=== PATIENT | female | born 1995 | race Caucasian/White ===

== ENCOUNTER 2017-11-16 11:45 | Emergency (ER) | payer OTHER ==
[~2017-11-16] VITALS: Ht 152.4 cm; Wt 48.2 kg
[2017-11-16 11:55] VITALS: TEMP 36.8; Ht 152.4 cm; Wt 48.2 kg
[2017-11-16] MEDS ORDERED: AMPH20CA3 PO (12:12)
[2017-11-16] MEDS ORDERED: MIRT1TAB27 PO (12:12)
[2017-11-16] MEDS ORDERED: VORT1TAB3 PO (12:12)
[2017-11-16] MEDS ORDERED: BCPILLS PO (12:12)
[2017-11-16] MEDS ORDERED: CLON0.5T3 PO (12:12)
[2017-11-16] MEDS ORDERED: AMPH1TAB58 PO (12:12)
[2017-11-16] MEDS ORDERED: ONDANSETRON INJ 2 MG/ML 2 ML VIAL IV STA (12:22)
[2017-11-16] MEDS ORDERED: FENTANYL CITRATE INJ 50 MCG/1 ML 2 ML VIAL IV STA (12:22)
[2017-11-16] MEDS ORDERED: OPTIRAY 320 IV PRN (12:30)
[2017-11-16 13:18] LABS: ISTAT CREATININE 0.6 mg/dl (0.6-1.3); ISTAT IONIZED CALCIUM 1.02 mmol/l (1.12-1.32); ISTAT POTASSIUM 3.7 mEq/L (3.3-5.0)
--- NOTE | 2017-11-16 13:21 | DIAGNOSTIC IMAGING REPORT ---
SINGLE VIEW CHEST CLINICAL HISTORY: Left-sided chest pain. FINDINGS: An AP, portable, upright chest radiograph is obtained. No prior studies are available for comparison at the time of dictation. The examination is degraded by portable technique and patient rotation. The cardiomediastinal silhouette is unremarkable. Airspace consolidation is seen throughout the left lung. The right lung appears clear. No large pleural effusion or pneumothorax is seen. The left second rib is fractured in at least 2 sites. There is also a left posterior third rib fracture. There may also be a left scapular fracture. IMPRESSION: 1. There are left second and third rib fractures as above. 2. Suspect a nondistracted left scapular fracture. 3. Airspace consolidation is seen throughout the left lung, greatest in the upper lobe. This likely represents contusion given the findings of trauma. This could also represent pneumonia in the appropriate clinical setting. Clinical correlation will be required. 4. No pneumothorax or large pleural effusion is identified. Electronically signed by: Sang Van M.D. 11/16/2017 1:20 PM Dictated Date/Time: 11/16/2017 1:17 PM
--- NOTE | 2017-11-16 13:55 | DIAGNOSTIC IMAGING REPORT ---
CT OF THE CERVICAL SPINE CLINICAL HISTORY: Neck pain status post trauma COMPARISON STUDY: No previous studies for comparison. CT DOSE: TECHNIQUE: CT scan of the cervical spine was performed from the skull base to the thoracic inlet. Images are reviewed in the axial, sagittal, and coronal planes. IV contrast was not administered for this examination. A dose lowering technique was utilized adhering to the principles of ALARA. FINDINGS: There is a tiny left apical pneumothorax The prevertebral soft tissues are normal. No fractures or subluxations are visualized. There is a suspected C5-C6 disc protrusion There are fractures of the left second and third ribs. There is a small left apical pneumothorax. There is left apical pleural capping. IMPRESSION: 1. No fractures or subluxations within the cervical spine 2. Acute fractures of the left second and third ribs 3. Small left apical pneumothorax 4. Suspected C5-C6 disc protrusion Electronically signed by: Braydon Rodgers M.D. 11/16/2017 1:56 PM Dictated Date/Time: 11/16/2017 1:52 PM
--- NOTE | 2017-11-16 13:56 | DIAGNOSTIC IMAGING REPORT ---
CT HEAD WITHOUT CONTRAST (CT) CLINICAL HISTORY: Head pain status post trauma COMPARISON STUDY: No previous studies for comparison. TECHNIQUE: Axial CT of the brain is performed from the vertex to the skull base. IV contrast was not administered for this examination. A dose lowering technique was utilized adhering to the principles of ALARA. CT DOSE: FINDINGS: No intra or extra-axial mass lesions are visualized. There is no CT evidence of acute cortical infarction. There is no evidence of midline shift. There is no acute hemorrhage. No calvarial fractures are visualized. There is no evidence of pathologic ventricular dilatation. There is near complete opacification the right sphenoid sinus. There is opacification several ethmoid air cells. IMPRESSION: 1. Presumed inflammatory changes within the sphenoid and ethmoid sinuses 2. No acute intracranial findings. Electronically signed by: Braydon Rodgers M.D. 11/16/2017 1:55 PM Dictated Date/Time: 11/16/2017 1:49 PM
--- NOTE | 2017-11-16 14:07 | DIAGNOSTIC IMAGING REPORT ---
(CHEST) THORAX WITH CT DOSE: HISTORY: Trauma LEFT CHEST/SCAPULA PAIN TECHNIQUE: Multiaxial CT images of the chest were performed following the intravenous administration of contrast. A dose lowering technique was utilized adhering to the principles of ALARA. COMPARISON: None. FINDINGS: Several left rib fractures are noted. The left second rib is fractured posteriorly and laterally. There is nondisplaced cortical fracture posterior left third and fourth ribs. Nondisplaced cortical fracture posterior left fifth rib. There is diffuse parenchymal infiltrate/contusion throughout the bulk of left hemithorax. Thoracic aorta is intact. There is no significant pericardial effusion. There is a fracture of the lateral left scapular body extending to the mid and superior aspect of the glenoid and superior left glenoid margin. There is a soft tissue hematoma lateral aspect left pulmonary apex within the chest wall. There is a very small left apical pneumothorax with a maximum pleural separation of 4 mm. Small left effusion. Right lung is clear. IMPRESSION: 1. Multiple left rib fractures involving the left second through fifth ribs. 2. Diffuse parenchymal infiltrate/contusion throughout the left hemithorax. 3. Chest wall hematoma about the fractures described previously. 4. Small left effusion. 5. Fracture lateral margin left scapula body extending to the left glenoid at its mid to superior aspect. This fracture is comminuted but nondisplaced. 6. Small left apical pneumothorax with a maximum pleural separation of 4 mm. The above report was generated using voice recognition software. It may contain grammatical, syntax or spelling errors. Electronically signed by: Alcon Diana M.D. 11/16/2017 2:06 PM Dictated Date/Time: 11/16/2017 1:54 PM
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
[2017-11-16 14:13] LABS: PTT PATIENT 22.4 SECONDS (21.0-31.0)
[2017-11-16] MEDS ORDERED: MoRPHine SULFATE 4 MG/ML 1 ML CARP\\VIAL IV STA (14:27)
[2017-11-16] MEDS ORDERED: SODIUM CHLORIDE 0.9% 1000ML 1,000 ML IV STA ×2 (14:27)
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
[2017-11-16 16:02] VITALS: BP 142/92; PULSE 112; O2SAT 94
== END 2017-11-16 15:55 | disposition short-term general hospital (02) ==
LOC: C.EDA 11:47
DX: S27.2XXA Traumatic hemopneumothorax, initial encounter (principal); S27.329A Contusion of lung, unspecified, initial encounter; S42.102A Fracture of unspecified part of scapula, left shoulder, initial encounter for closed fracture; S32.9XXA Fracture of unspecified parts of lumbosacral spine and pelvis, initial encounter for closed fracture; S22.42XA Multiple fractures of ribs, left side, initial encounter for closed fracture; V48.5XXA Car driver injured in noncollision transport accident in traffic accident, initial encounter; Y92.411 Interstate highway as the place of occurrence of the external cause; F90.9 Attention-deficit hyperactivity disorder, unspecified type; F41.9 Anxiety disorder, unspecified; F32.9 Major depressive disorder, single episode, unspecified; Z79.3 Long term (current) use of hormonal contraceptives; Z79.899 Other long term (current) drug therapy